=== PATIENT | female | born 1995 | race African-American/Black ===

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

== ENCOUNTER 2018-04-03 16:08 | Inpatient (IN) | payer SELFPAY ==
[~2018-04-03] VITALS: Ht 165.1 cm; Wt 50.9 kg
[2018-04-03 17:39] LABS: HEMATOCRIT 35.4 % (36.0-46.0); HEMOGLOBIN 11.9 G/DL (11.9-15.5); MCH 26.4 PG (29.0-34.0); MCHC 33.6 G/DL (30.0-36.0); MCV 78.7 FL (83-99); PLATELET COUNT 216 K/uL (156-360); RBC DIS.WIDTH-CV 15.4 % (11.8-14.6); RBC DIS.WIDTH-SD 43.9 % (39-53); WHITE BLOOD COUNT 7.6 K/uL (4.1-10.2)
[2018-04-03 17:49] LABS: ALBUMIN 4.2 g/dL (3.2-4.8)
[2018-04-03 17:50] LABS: CHLORIDE 101 mEq/L (99-109); POTASSIUM 3.1 mEq/L (3.7-5.4); SODIUM 134 mEq/L (136-147)
[2018-04-03 17:52] LABS: GLUCOSE 84 mg/dL (70-99); TOTAL PROTEIN 7.3 g/dL (6.4-8.3)
[2018-04-03 17:54] LABS: TOTAL BILIRUBIN 0.3 mg/dL (0.0-1.0)
[2018-04-03 17:55] LABS: SERUM ETHYL ALCOHOL < 10 mg/dL
[2018-04-03 17:56] LABS: ALKALINE PHOSPHATASE 50 IU/L (3-129); CREATININE 0.9 mg/dL (0.6-1.3); GFR ESTIMATE (CALCULATED) > 59 mL/min/
[2018-04-03 17:57] LABS: AST (GOT) 17 IU/L (2-34)
[2018-04-03 17:58] LABS: UREA NITROGEN (BUN) 9 mg/dL (9-23)
[2018-04-03 17:59] LABS: ALT (GPT) 11 IU/L (3-49); SALICYLATE < 5.0 MG/DL (15-30)
[2018-04-03 18:00] LABS: ACETAMINOPHEN (TYLENOL) < 10 mcg/mL (10-30)
[2018-04-03 18:14] LABS: APPEARANCE CLEAR ((CLEAR)); BILIRUBIN MODERATE; BLOOD NEGATIVE; COLOR YELLOW ((YELLOW)); GLUCOSE (STRIP) NEGATIVE; KETONES 20; LEUKOCYTES NEGATIVE; NITRITE NEGATIVE; PROTEIN (STRIP) 30; SPECIFIC GRAVITY 1.039 (1.000-1.030)
[2018-04-03 18:26] LABS: ICTOTEST ND
[2018-04-03 18:51] LABS: AMPHETAMINE PRESUMPTIVE POSITIVE (500 ng/mL); BARBITURATES PRESUMPTIVE POSITIVE (200 ng/mL); BENZODIAZEPINES NEGATIVE (150 ng/mL); BUPRENORPHINE NEGATIVE (10 ng/mL); COCAINE NEGATIVE (150 ng/mL); METHADONE NEGATIVE (200 ng/mL); METHAMPHETAMINE NEGATIVE (500 ng/mL); OPIATES (MORPHINE) NEGATIVE (100 ng/mL); OXYCODONE NEGATIVE (100 ng/mL); PHENCYCLIDINE NEGATIVE (25 ng/mL); PROPOXYPHENE NEGATIVE (300 ng/mL); THC CANNABINOIDS PRESUMPTIVE POSITIVE (50 ng/mL); TRICYCLIC ANTIDEPRESSANTS PRESUMPTIVE POSITIVE (300 ng/mL)
[2018-04-03 19:21] LABS: LIPASE 13 U/L (1.0-51.0)
[2018-04-03 21:28] VITALS: BP 118/73
[2018-04-04 08:05] VITALS: BP 99/60
[2018-04-04 17:03] VITALS: BP 89/56
[2018-04-05 07:42] VITALS: BP 116/71
[2018-04-05 14:57] VITALS: BP 115/63
[2018-04-06 07:34] VITALS: BP 101/65
[2018-04-06 15:13] VITALS: BP 98/51
[2018-04-07 07:51] VITALS: BP 110/59
== END 2018-04-07 11:38 | disposition home or self-care (01) | DRG 918 ==
LOC: EME 16:08 → 1WEST 20:01 → EDOF 20:01 → ENRESERV 20:40 → 1WEST 21:15
PROVIDERS: Emergency Medicine
DX: T39.312A Poisoning by propionic acid derivatives, intentional self-harm, initial encounter (principal); F43.23 Adjustment disorder with mixed anxiety and depressed mood; F12.20 Cannabis dependence, uncomplicated; E87.5 Hyperkalemia; E87.6 Hypokalemia; F60.9 Personality disorder, unspecified
CPT/HCPCS: 71045; 80053; 81003; 82140; 83690; 84999; 85027; 90837; 93005; 97150 GO; 97165 GO; 99281; 99285; G0480; J1630; J2060; J2405; J7030